=== PATIENT | male | born 1955 | race Caucasian/White ===

== ENCOUNTER 2016-08-17 10:27 | Emergency (ER) | payer OTHER ==
[~2016-08-17] VITALS: Ht 170.2 cm; Wt 95.8 kg
[2016-08-17] MEDS ORDERED: NORCO 7.5/321 TABLET PO (12:21)
[2016-08-17] MEDS ORDERED: VALIUM5 MG PO (12:21)
[2016-08-17] MEDS ORDERED: INDOCIN50 MG PO (12:21)
[2016-08-17] MEDS ORDERED: LIDODERM 5% P1 PATCH TD (12:22)
[2016-08-17 12:52] VITALS: BP 124/80
== END 2016-08-17 12:53 | disposition home or self-care (01) ==
LOC: EME 10:27
DX: S39.012A Strain of muscle, fascia and tendon of lower back, initial encounter (principal); X58.XXXA Exposure to other specified factors, initial encounter; E78.00 Pure hypercholesterolemia, unspecified; I10 Essential (primary) hypertension; K21.9 Gastro-esophageal reflux disease without esophagitis; Z88.0 Allergy status to penicillin; Z88.7 Allergy status to serum and vaccine; Z88.1 Allergy status to other antibiotic agents; Z87.891 Personal history of nicotine dependence
CPT/HCPCS: 94640; 99281; 99284; J1885; J3010

== ENCOUNTER → 2017-02-23 | Outpatient (CLI) | payer OTHER ==
[~2017-02-23] MED LIST: ASPIR 8181 M1 PO; CARTIA XT240 MG PO; CLARITIN,ALAVAR10 MG PO; FLONASE ALLERG9.9 ML BOTH NARES; INDOCIN50 MG PO; LIDODERM 5% P1 PATCH TD; LIPITOR20 MG PO; NEURONTIN300 MG PO; NORCO 7.5/321 TABLET PO; PEPCID40 MG PO; PREVACID30 MG PO; PROAIR HFA8.5 GM IH; SPIRIVA1 INHALATI IH; VALIUM5 MG PO; ZESTORETIC 10-1 EAC1 PO
== END | disposition home or self-care (01) ==
LOC: CDC 10:38
DX: Z01.810 Encounter for preprocedural cardiovascular examination (principal); M79.9 Soft tissue disorder, unspecified; I45.10 Unspecified right bundle-branch block
CPT/HCPCS: 93000

== ENCOUNTER 2017-03-01 06:22 | Day surgery (SDC) | payer OTHER ==
[~2017-03-01] VITALS: Ht 170.2 cm; Wt 102.1 kg
[2017-03-01 07:21] LABS: POINT-OF-CARE METER ID UU14174212
[2017-03-01 07:33] VITALS: BP 142/82
[2017-03-01] MEDS ORDERED: PERCOCET 5/31 TABLET PO (10:11)
[2017-03-01 11:05] VITALS: BP 129/68
[2017-03-01 11:42] VITALS: BP 114/65
== END 2017-03-01 11:53 | disposition home or self-care (01) ==
LOC: SDC 06:22
PROVIDERS: Surgery
DX: L72.0 Epidermal cyst (principal); I10 Essential (primary) hypertension; F41.8 Other specified anxiety disorders; K21.9 Gastro-esophageal reflux disease without esophagitis; E78.5 Hyperlipidemia, unspecified; R73.03 Prediabetes; M51.06 Intervertebral disc disorders with myelopathy, lumbar region; Z79.82 Long term (current) use of aspirin; Z87.891 Personal history of nicotine dependence; Z88.0 Allergy status to penicillin
CPT/HCPCS: 82948; 88304; J0690; J1100; J2250; J2405; J3010; S0020